=== PATIENT | female | born 1965 | race African-American/Black ===

== ENCOUNTER 2017-06-20 15:14 | Outpatient (CLI) | payer OTHER ==
--- NOTE | 2017-06-20 15:41 | MMO ---
BILATERAL SCREENING MAMMOGRAMS: Date: 06/20/17 Baseline study. FINDINGS: Scattered fibroglandular densities. No mass, distortion, or suspicious calcification. Recommend one y ear follow-up. IMPRESSION: BIRADS 1: Negative POS: DREW
== END 2017-06-20 15:15 | disposition home or self-care (01) ==
LOC: SCSMAMMO 15:14
PROVIDERS: ATTEND Family Medicine
DX: Z12.31 Encounter for screening mammogram for malignant neoplasm of breast (principal)
CPT/HCPCS: 77067; G0202